=== PATIENT | female | born 1965 | race Caucasian/White ===

== ENCOUNTER 2016-05-26 08:18 | Observation (INO) | payer BC ==
[~2016-05-26] VITALS: Ht 157.5 cm; Wt 58.8 kg
[2016-05-26] MEDS ORDERED: NITROGLYCERIN 0.4 MG SL PER TAB CHARGE SL STA (08:59)
[2016-05-26] MEDS ORDERED: ASPIRIN 81 MG CHEW PO STA (09:05)
--- NOTE | 2016-05-26 09:06 | EMERGENCY ROOM VISIT NOTE ---
ED Visit Note First contact with patient: 08:36 Patient evaluated with resident. Atypical CP x 2 weeks, (?) exertional. (+) FH CAD in father. (-) prior cardiac evaluations nor stress test in last 2 years. EKG SR NSSTC w/ (-) troponin. Admit r/o ACS/CAD.
[2016-05-26 09:10] LABS: BASO % 0.6 %; BASO ABS # 0.02 K/uL (0-0.2); COMPLETE YES; HEMATOCRIT 41.9 % (37-47); LYMPH ABS # 1.35 K/uL (1.2-3.4); MEAN CELL VOLUME 89.7 fL (80-100); MEAN CORPUSCULAR HEMOGLOBIN 30.8 pg (25-34); MEAN CORPUSCULAR HGB CONC 34.4 g/dl (32-36); MEAN PLATELET VOLUME 10.4 fL (7.4-10.4); MONO % 6.5 %; NEUT % 52.9 %; PLATELET COUNT 175 K/uL (130-400); RED BLOOD COUNT 4.67 M/uL (4.2-5.4); WHITE BLOOD COUNT 3.55 K/uL (4.8-10.8)
[2016-05-26 09:17] LABS: ALT/SGPT 20 U/L (12-78); BLOOD UREA NITROGEN 12 mg/dl (7-18); CARBON DIOXIDE 27 mmol/L (21-32); CHLORIDE 106 mmol/L (98-107); CREATININE 0.83 mg/dl (0.60-1.20); GLUCOSE 64 mg/dl (70-99); POTASSIUM 3.4 mmol/L (3.5-5.1); SODIUM 144 mmol/L (136-145)
--- NOTE | 2016-05-26 09:17 | EMERGENCY ROOM VISIT NOTE ---
History First contact with patient: 08:36 Chief Complaint: CHEST PAIN Stated Complaint: CHEST PAIN Nursing Triage Summary: pt. states she has been experiencing mild chest pain and arm pain past week History of Present Illness The patient is a 50 year old female who presents to the Emergency Room with complaints of chest pain for 2 weeks. She has no history of HTN, DM, hypercholesterelemia. She is a non-smoker. She does have a pertinent family history of CAD (father had OH at 52) Patient notes a "squeezing pain" 6/10 substernally by favoring the left side. Pain also radiates to left scapula and she gets tingling in her left arm. She initially attributed pain gas or refluex. She prevacid and antacids but these did not help. She also notes some sweats with her symptoms. She denies nausea or epigastric pain. The pain is not pleuritic. She does note that she can palpate her left breast which makes the pain more noticeable. This morning, she tried walking in the treadmill and noted that it made her pain slightly worse. The pain improved slightly when she stopped walking. She denies coughing, SOB, wheezing, palpitations, orthopnea or edema. She denies being having stress testing done. She does not that in 2007, she had a similar episode when she was living in [place]. She was told she had inflammation around the lining of the heart. She cannot recall, if she was told whether she her pericarditis or pericardial effusion. Records of these are not available. Review of Systems A 10 point review of systems was negative unless stated above. Past Medical/Surgical History Medical ?Pericarditis/Pericardial effusion? 2007 in [place] Endometriosis Surgical - Breast implants 2004 - Hysterectomy for endometriosis Social History Smoking Status: Never Smoker Smokeless Tobacco Use: No Alcohol Use: none Drug Use: none Marital Status: Housing Status: lives with family ( and 3 kids) Occupation Status: employed (daycare) Current/Historical Medications No Active Prescriptions or Reported Meds Allergies Coded Allergies: No Known Allergies (Unverified , 05/26/16) Physical Exam Vital Signs Date Time Temp Pulse Resp B/P Pulse Ox O2 Delivery O2 Flow Rate FiO2 05/26/16 10:12 46 17 102/67 99 Room Air 05/26/16 09:26 57 20 107/70 96 Room Air 05/26/16 09:15 57 15 115/81 100 Room Air 05/26/16 08:35 100 Room Air 05/26/16 08:33 56 05/26/16 08:21 36.4 55 16 124/81 100 Room Air Pain Rating (0-10): 6 Physical Exam Constitutional: Vital signs as above were reviewed. Eyes: Pupils equal, round, and reactive to light. Extraocular muscles are intact. No proptosis. No photophobia. ENT: Mucous membranes are moist. Oropharynx is clear. No sinus tenderness. TMs are clear bilaterally. Cardiovascular: Bradycardia with regular rhythm. Pulses are palpable and symmetric in all 4 extremities. No pedal edema appreciated. No JVD Respiratory: Lungs clear to auscultation bilaterally. No wheezes, rales, or rhonchi appreciated. No accessory muscle use. No retractions. No increased work of breathing. GI: Abdomen soft, nontender, nondistended. Normal active bowel sounds. No abdominal hernias appreciated. No rebound. No guarding. : No CVA tenderness appreciated. Musculoskeletal: No midline cervical or vertebral tenderness. No gross deformities. No bony tenderness. No calf swelling or tenderness. Integumentary: Warm, dry, no rashes appreciated. Neurological: Patient awake, alert, and oriented x 3. Cranial nerves two through 12 grossly intact. Motor 5 out of 5 strength bilateral upper and lower extremities. Lymph: No cervical lymphadenopathy appreciated. Medical Decision & Procedures Laboratory Results 05/26/16 08:55 Red Blood Count 4.67, Mean Corpuscular Volume 89.7, Mean Corpuscular Hemoglobin 30.8, Mean Corpuscular Hemoglobin Concent 34.4, Mean Platelet Volume 10.4, Neutrophils (%) (Auto) 52.9, Lymphocytes (%) (Auto) 38.0, Monocytes (%) (Auto) 6.5, Eosinophils (%) (Auto) 2.0, Basophils (%) (Auto) 0.6, Neutrophils # (Auto) 1.88, Lymphocytes # (Auto) 1.35, Monocytes # (Auto) 0.23, Eosinophils # (Auto) 0.07, Basophils # (Auto) 0.02 05/26/16 08:55 Test 05/26/16 08:55 05/26/16 09:10 White Blood Count 3.55 K/uL (4.8-10.8) Red Blood Count 4.67 M/uL (4.2-5.4) Hemoglobin 14.4 g/dL (12.0-16.0) Hematocrit 41.9 % (37-47) Mean Corpuscular Volume 89.7 fL (80-100) Mean Corpuscular Hemoglobin 30.8 pg (25-34) Mean Corpuscular Hemoglobin Concent 34.4 g/dl (32-36) Platelet Count 175 K/uL (130-400) Mean Platelet Volume 10.4 fL (7.4-10.4) Neutrophils (%) (Auto) 52.9 % Lymphocytes (%) (Auto) 38.0 % Monocytes (%) (Auto) 6.5 % Eosinophils (%) (Auto) 2.0 % Basophils (%) (Auto) 0.6 % Neutrophils # (Auto) 1.88 K/uL (1.4-6.5) Lymphocytes # (Auto) 1.35 K/uL (1.2-3.4) Monocytes # (Auto) 0.23 K/uL (0.11-0.59) Eosinophils # (Auto) 0.07 K/uL (0-0.5) Basophils # (Auto) 0.02 K/uL (0-0.2) RDW Standard Deviation 42.4 fL (36.4-46.3) RDW Coefficient of Variation 13.0 % (11.5-14.5) Immature Granulocyte % (Auto) 0.0 % Immature Granulocyte # (Auto) 0.00 K/uL (0.00-0.02) Anion Gap 11.0 mmol/L (3-11) Est Creatinine Clear Calc Drug Dose 64.9 ml/min Estimated GFR () 96.0 Estimated GFR (Non- 82.8 BUN/Creatinine Ratio 14.0 (10-20) Calcium Level 9.0 mg/dl (8.5-10.1) Total Bilirubin 0.3 mg/dl (0.2-1) Aspartate Amino Transf (AST/SGOT) 28 U/L (15-37) Alanine Aminotransferase (ALT/SGPT) 20 U/L (12-78) Alkaline Phosphatase 79 U/L (45-117) Total Creatine Kinase 182 U/L (26-192) Creatine Kinase MB 4.0 ng/ml (0.5-3.6) Creatine Kinase MB Ratio 2.2 (0-3.0) Troponin I < 0.015 ng/ml (0-0.045) Total Protein 7.5 gm/dl (6.4-8.2) Albumin 4.2 gm/dl (3.4-5.0) Globulin 3.3 gm/dl (2.5-4.0) Albumin/Globulin Ratio 1.3 (0.9-2) Bedside Troponin I 0.000 ng/ml (0-0.045) Medications Administered Medications (Trade) Dose Ordered Sig/Brian Route Start Time Stop Time Status Last Admin Dose Admin Nitroglycerin (Nitrostat Tab) 0.4 mg NOW STAT SL 05/26/16 08:59 05/26/16 09:02 DC 05/26/16 09:13 0.4 MG Aspirin (Aspirin Chew) 324 mg NOW STAT PO 05/26/16 09:05 05/26/16 09:06 DC 05/26/16 09:13 324 MG ED Course 08:30 - Patient seen and assessed Initial orders placed: CBC, CMP, POC troponin, Troponin, CK, CKMB CXR, EKG 0.4 mg SL Nitro + 324 ASA chew 09:00 - Reviewed case with Dr. Arellano EKG review; No acute ST elevation; T wave inversion noted in AvL; otherwise normal EKG Agrees with plan; discuss need to admit for cardiac rule out. 09:30 - Reviewed Labs and CXR Cardiac enzymes normal x 1 Decision to admit 09:50 - Discussed case with Dr. Cyn Fitzpatrick of [facility] hospitalist service Hospitalist to admit patient for further evaluation Medical Decision Patient was interviewed, physical exam performed, and EMR reviewed. Patient presents with chest pain. Features are typical for angina 1) substernal pressure 2) worse with exertion 3) improves with rest. Patient is a 50-YO, with symptoms of typical angina, would categorize her in the intermediate probability for underlying CAD (10- 90%). Patient does note a history, likely of pericarditis or pericardial effusion, diagnosed in [place], also worth considering. Other differentials include: Angina, ACS, Pneumothorax, Pneumonia, Aortic Dissection, PE, esophageal spasm, esophagitis, PUD, gastritis, costochondritis. CXR was fortunately normal. No evidence of RV strain, no hypoxia or tacchycardia, or pyrexia to suggest infection or PE. Patient does need evaluation with stress testing due to intermediate ore-test probability. Case discussed with [facility] hospitalist service, who will admit patient for further evaluation. Patient departed from the ED in stable condition. Impression Primary Impression: Chest wall pain Departure Information Dispostion Being Evaluated By Hospitalist Condition GOOD Prescriptions No Active Prescriptions or Reported Meds Referrals Chaya Mcdaniels DO (PCP) Patient Instructions [facility]
[2016-05-26 09:21] LABS: ALB/GLOB RATIO 1.3 (0.9-2); ALKALINE PHOSPHATASE 79 U/L (45-117); AST/SGOT 28 U/L (15-37); CKMB/CK RATIO 2.2 (0-3.0)
--- NOTE | 2016-05-26 10:05 | DIAGNOSTIC IMAGING REPORT ---
CHEST 2 VIEWS ROUTINE CLINICAL HISTORY: Atypical chest pain, fatigue. COMPARISON STUDY: No previous studies for comparison. FINDINGS: The cardiac and mediastinal contours are normal. There is no evidence of focal pulmonary consolidation. There is no evidence of failure. No pleural effusions are visualized.[ IMPRESSION: No active disease in the chest. Electronically signed by: Andres Lepe M.D. 05/26/2016 10:03 AM Dictated Date/Time: 05/26/2016 10:02 AM
[2016-05-26] MEDS ORDERED: MAGNESIUM HYDROXIDE SUSP 30 ML UDC PO PRN (11:30)
[2016-05-26] MEDS ORDERED: NITROGLYCERIN 0.4 MG SL PER TAB CHARGE SL PRN (11:30)
[2016-05-26] MEDS ORDERED: ALUMINUM/MAGNESIUM/SIMETH (MAALOX MAX) 30 ML UDC PO PRN (11:30)
[2016-05-26] MEDS ORDERED: ACETAMINOPHEN 325 MG TAB PO PRN (11:30)
[2016-05-26] MEDS ORDERED: POLYETHYLENE (MIRALAX) 17 GM PACK PO PRN (11:30)
[2016-05-26] MEDS ORDERED: ONDANSETRON INJ 2 MG/ML 2 ML VIAL IV PRN (11:30)
[2016-05-26 11:51] VITALS: BP 123/75; PULSE 49; TEMP 36.4; O2SAT 98; Ht 157.5 cm; Wt 58.8 kg
[2016-05-26 12:13] LABS: PARTIAL THROMBOPLASTIN RATIO 1.1; PROTHROMBIN TIME (PATIENT) 10.3 SECONDS (9.0-12.0)
[2016-05-26 12:24] VITALS: O2SAT 98
--- NOTE | 2016-05-26 13:25 | History and Physical ---
History & Physical Date & Time of Service: May 26, 2016 at 12:57 Chief Complaint: Chest Pain Primary Care Physician: Chaya Mcdaniels DO History of Present Illness Source: patient, clinic records, hospital records This is a 50 y/o female with a history of presumably pericarditis around 2007 and no other significant past medical history who presented to the ED on with chest pain x 2 weeks. The patient describes the pain as a constant squeezing that is typically a 6/10 and is located on the left side of her chest substernally. The pain does radiate down to her left arm and she also complain of tingling down her left arm. Early this morning around 1:30 am prior to arrival the pain suddenly became more severe, waking the patient up. She also woke up with sweats, which is unusual for her. The pain at that time was a 7/ 10 and began to radiate through to her back and across to her right chest. The patient attempted to do her daily exercise on the treadmill, but this exacerbated the pain. The pain was alleviated with rest. The patient also notes that she has been more weak and fatigued in the last few weeks and has not been able to do her usual work out routine. The patient denies any previous cardiac events, although she does state that she experienced chest pain before around 2006 or 2007. These records are not on file, but based on the patient's description sounds like she was diagnosed with pericarditis and was treated with NSAIDs. The patient received ASA and nitro in the ED, which alleviated her pain from a 7/10 to a 3/10. The patient denies fevers, chills, palpitations, claudication, cough, wheezing, shortness of breath, nausea, vomiting, abdominal pain, dysuria, hematuria, urinary retention, and paralysis. Past Medical/Surgical History H/o pericarditis around 2007 Family History Alcohol abuse FATHER Anxiety disorder FATHER Drug abuse FATHER Hepatitis MOTHER Hypertension FATHER Hypothyroidism SISTER Myocardial infarction FATHER MOTHER Stroke FATHER MOTHER Social History Smoking Status: Never Smoker Smokeless Tobacco Use: No Alcohol Use: none Drug Use: none Marital Status: Housing status: lives with family Occupational Status: employed (daycare) Allergies Coded Allergies: No Known Allergies (Unverified , 05/26/16) Home Medications No Active Prescriptions or Reported Meds Review of Systems Constitutional: + fatigue, + sweats, + weakness, No chills, No fever Eyes: No diplopia, No eye pain, No worsening of vision ENT: No hearing loss, No sore throat, No tinnitus Respiratory: No cough, No shortness of breath, No wheezing Cardiovascular: + chest pain (squeezing, left side), No claudication, No palpitations Abdomen: No nausea, No pain, No vomiting Musculoskeletal: No calf pain, No joint pain, No muscle pain Genitourinary - Female: No dysuria, No hematuria, No urinary retention Neurologic: No numbness/tingling, No paralysis, No vertigo Integumentary: No color change, No itch, No rash Physical Exam Vital Signs Date Time Temp Pulse Resp B/P Pulse Ox O2 Delivery O2 Flow Rate FiO2 05/26/16 12:24 48 14 110/71 98 05/26/16 11:54 57 05/26/16 11:51 36.4 49 14 123/75 98 Room Air 05/26/16 11:17 49 13 111/75 100 Room Air 05/26/16 10:12 46 17 102/67 99 Room Air 05/26/16 09:26 57 20 107/70 96 Room Air 05/26/16 09:15 57 15 115/81 100 Room Air 05/26/16 08:35 100 Room Air 05/26/16 08:33 56 05/26/16 08:21 36.4 55 16 124/81 100 Room Air General Appearance: WD/WN, no apparent distress Head: normocephalic, atraumatic Eyes: normal inspection, PERRL, EOMI ENT: normal ENT inspection, hearing grossly normal, pharynx normal Neck: supple, no JVD, trachea midline Respiratory/Chest: lungs clear, normal breath sounds, no respiratory distress, + pertinent finding (left chest TTP anteriorly and laterally) Cardiovascular: regular rate, rhythm, no gallop, no murmur, + bradycardia Abdomen/GI: normal bowel sounds, non tender, soft Extremities/Musculoskelatal: normal inspection, no calf tenderness, no pedal edema Neurologic/Psych: alert, normal mood/affect, oriented x 3 Skin: normal color, warm/dry, no rash Diagnostics Laboratory Results Results Past 24 Hours Test 05/26/16 08:35 05/26/16 08:55 05/26/16 09:10 Range/Units Prothrombin Time 10.3 9.0-12.0 SECONDS Prothromb Time International Ratio 1.0 0.9-1.1 Activated Partial Thromboplast Time 27.5 21.0-31.0 SECONDS Partial Thromboplastin Ratio 1.1 White Blood Count 3.55 4.8-10.8 K/uL Red Blood Count 4.67 4.2-5.4 M/uL Hemoglobin 14.4 12.0-16.0 g/dL Hematocrit 41.9 37-47 % Mean Corpuscular Volume 89.7 80-100 fL Mean Corpuscular Hemoglobin 30.8 25-34 pg Mean Corpuscular Hemoglobin Concent 34.4 32-36 g/dl Platelet Count 175 130-400 K/uL Mean Platelet Volume 10.4 7.4-10.4 fL Neutrophils (%) (Auto) 52.9 % Lymphocytes (%) (Auto) 38.0 % Monocytes (%) (Auto) 6.5 % Eosinophils (%) (Auto) 2.0 % Basophils (%) (Auto) 0.6 % Neutrophils # (Auto) 1.88 1.4-6.5 K/uL Lymphocytes # (Auto) 1.35 1.2-3.4 K/uL Monocytes # (Auto) 0.23 0.11-0.59 K/uL Eosinophils # (Auto) 0.07 0-0.5 K/uL Basophils # (Auto) 0.02 0-0.2 K/uL RDW Standard Deviation 42.4 36.4-46.3 fL RDW Coefficient of Variation 13.0 11.5-14.5 % Immature Granulocyte % (Auto) 0.0 % Immature Granulocyte # (Auto) 0.00 0.00-0.02 K/uL Sodium Level 144 136-145 mmol/L Potassium Level 3.4 3.5-5.1 mmol/L Chloride Level 106 98-107 mmol/L Carbon Dioxide Level 27 21-32 mmol/L Anion Gap 11.0 3-11 mmol/L Blood Urea Nitrogen 12 7-18 mg/dl Creatinine 0.83 0.60-1.20 mg/dl Est Creatinine Clear Calc Drug Dose 64.9 ml/min Estimated GFR () 96.0 Estimated GFR (Non- 82.8 BUN/Creatinine Ratio 14.0 10-20 Random Glucose 64 70-99 mg/dl Calcium Level 9.0 8.5-10.1 mg/dl Total Bilirubin 0.3 0.2-1 mg/dl Aspartate Amino Transf (AST/SGOT) 28 15-37 U/L Alanine Aminotransferase (ALT/SGPT) 20 12-78 U/L Alkaline Phosphatase 79 45-117 U/L Total Creatine Kinase 182 26-192 U/L Creatine Kinase MB 4.0 0.5-3.6 ng/ml Creatine Kinase MB Ratio 2.2 0-3.0 Troponin I < 0.015 0-0.045 ng/ml Total Protein 7.5 6.4-8.2 gm/dl Albumin 4.2 3.4-5.0 gm/dl Globulin 3.3 2.5-4.0 gm/dl Albumin/Globulin Ratio 1.3 0.9-2 Bedside Troponin I 0.000 0-0.045 ng/ml Diagnostic Radiology Reviewed the following studies and agree with interpretation as follows: Patient Name: PRINCESS MURPHY Unit Number: [id number] Dictated: 05/26/161001 Transcribed: 05/26/161001 ARG Printed Date/Time: [~ rep prt dt]/[~ rep prt tm] [~ rep ct labl] - [~ rep ct ivnm] [facility] [place] [place] [address] Dictated: 05/26/16 1002 Transcribed: 05/26/16 1002 ARG Printed Date/Time: [~ rep prt dt]/[~ rep prt tm] [~ rep ct labl] - [~ rep ct ivnm] Patient: PRINCESS MURPHY Lavinia Address1: [address] [facility] Rec: [id number] Address2: Acct ID: [id number] [facility] Zip: [place] [address] Date: 1965 Sex: F Room/Bed: Ref Phy: Chaya Mcdaniels DO SC: ZAN Att Phy: Report #: [id number] Edyta Phy: Chaya Mcdaniels DO Test: CXR Admit Phy: Supervisor [employer] Handling: PATEGR Interpreting Phy: Andres Lepe M.D. Diagnosis: CHEST PAIN Ordering Phy: Kel Woodruff MD Service Date: 05/26/16 Admit Date: 05/26/16 MNE: [id number] CONF: DICTATED BY: Andres Lepe M.D.]] CC: Chaya Mcdaniels, Deanne Bocanegra, Kel Fenton MD Endcc: [~ rep ct add3]] CHEST 2 VIEWS ROUTINE CLINICAL HISTORY: Atypical chest pain, fatigue. COMPARISON STUDY: No previous studies for comparison. FINDINGS: The cardiac and mediastinal contours are normal. There is no evidence of focal pulmonary consolidation. There is no evidence of failure. No pleural effusions are visualized.[ IMPRESSION: No active disease in the chest. Electronically signed by: Andres Lepe M.D. 05/26/2016 10:03 AM Dictated Date/Time: 05/26/2016 10:02 AM The status of this report is Signed. Draft = Not yet reviewed or approved by Radiologist. Signed = Reviewed and approved by Radiologist. <AttendingPhy></AttendingPhy> <FamilyPhy>Chaya Mcdaniels DO</FamilyPhy> < PrimaryPhy>Chaya Mcdaniels, </PrimaryPhy> <UnitNumber>[id number]</UnitNumber > <VisitNumber>[id number]</VisitNumber> <PatientName>PRINCESS MURPHY Lavinia</ PatientName> <DateOfBirth>1965</DateOfBirth> <Location>C.EDB</Location> < ServiceDate>05/26/16</ServiceDate> <MNE>ESINDI</MNE> <OrderingPhy>Kel Woodruff MD</OrderingPhy> <OrderingPhyMNE>f rep ord dr coleman</OrderingPhyMNE> < DictatingPhyMNE>f rep dict dr coleman</DictatingPhyMNE> <CCListMNE>f rep ct mne</ CCListMNE> <AdmittingPhyMNE>f pt admit dr coleman</AdmittingPhyMNE> <AttendingPhyMNE >f pt attend dr coleman</AttendingPhyMNE> <ConsultingPhyMNE>f pt consult dr coleman</ConsultingPhyMNE> <FamilyPhyMNE>f pt fam dr coleman</FamilyPhyMNE> <OtherPhyMNE>f pt other dr coleman</OtherPhyMNE> < PrimaryPhyMNE>f pt prim care dr coleman</PrimaryPhyMNE> <ReferringPhyMNE>f pt referring dr coleman</ReferringPhyMNE> EKG Reviewed EKG and agree with interpretation as follows: 52 bpm, sinus bradycardia, mild T wave inversions in aVL, V1 and V3 Impression Assessment and Plan 50 y/o female with a history of presumably pericarditis around and no other significant past medical history who presented to the ED on 05/26 with chest pain x 2 weeks. Pain is constant and squeezing in character, located substernal left chest with radiation down left arm as well as tingling. This morning the pain became more severe and radiated to back and right chest, this was accompanied by sweats. Pain exacerbated by exercise and alleviated by rest. Pain alleviated by nitro and ASA received in ED. Pt. afebrile, VSS. CXR no acute disease. EKG sinus bradycardia with mild anterolateral T wave inversions, no ST changes. First set cardiac enzymes negative. Chest pain -Admit to telemetry for observation and cardiac monitoring -Trend cardiac enzymes q8h x 3 -Echocardiogram ordered -Start ASA 81 mg PO qd -NPO after midnight -Exercise stress test tomorrow am -Fasting lipid panel tomorrow am -Repeat EKG in the am, and prn with recurrence of chest pain GI prophylaxis -Maalox Max 15 mL PO q4h prn dyspepsia -Milk of magnesia 30 mL PO q6h prn constipation -Miralax 17 gm PO qd prn constipation -Zofran 4 mg IV q6h prn nausea DVT prophylaxis -ABBE reid and SCDs Code Status -Level I, FULL RESUSCITATION STATUS Level of Care Telemetry (observation) Advanced Directives Existing Advance Directive: No Existing Living Will: No Existing Power of Supervisor Powdered Sugar: No Resuscitation Status FULL RESUSCITATION VTE Prophylaxis VTE Risk Assessment Done? Y/N: Yes Risk Level: Low Given or contraindicated: T.E.D. Stockings, SCD's Reviewed: Pt Seen/Exam by Me History Pt has more of a soreness along her L chest that is along the outline of her breast/under her breast. There has not been return of the intense pain like this AM, but she was walking on a treadmill when this happened. Tianna GONZALEZ feels "off " but not the more billy n/t that she had this AM. This is not really similar to the chest pain episode she had several years ago. She has been NPO since arrival. There has been no SOB. Agree with HPI/ROS as noted. General Appearance: WD/WN, no apparent distress Respiratory: normal breath sounds, no respiratory distress Cardiovascular: normal peripheral pulses, regular rate, rhythm Gastrointestinal: non tender, soft Extremities: non-tender, no pedal edema Neurologic/Psychiatric: alert, normal mood/affect Skin Characteristics: normal color, warm/dry Comments CP is reproducible along outline of L breast, worst along inferior and medial border Assessment/Plan Agree with plan as outlined above Trop neg in ED, serial pending ECHO and likely stress pending Concerning for ACS given LUE n/t and FH of same
[2016-05-26] MEDS ORDERED: IV FLUIDS COMPLETED PRN (13:45)
[2016-05-26] MEDS ORDERED: POTASSIUM CHLORIDE 20 MEQ TABCR PO ONE (15:00)
[2016-05-26 16:00] VITALS: BP 130/47; PULSE 52; TEMP 36.9; O2SAT 100
--- NOTE | 2016-05-26 16:45 | ECHOCARDIOGRAM REPORT ---
*NOTICE TO RECEIVING [employer]ENCY This information is strictly Confidential and protected under [place] law. [place] law prohibits you from making any further disclosure of this information unless further disclosure is expressly permitted by the written consent of the person to whom it pertains or is authorized by law. A general authorization for the release of medical or other information is not sufficient for this purpose. Hospital accepts no responsibility if the information is made available to any other person, INCLUDING THE PATIENT. Interpretation Summary * Name: PRINCESS MURPHY Study Date: 05/26/2016 04:21 PM BP: 110/71 mmHg * Patient Location: C.2E\S\E210\S\1 HR: 46 * : 1965 (M/d/yyyy) Gender: Female Height: 62 in * Age: 50 yrs Ethnicity: CA Weight: 132 lb * Ordering Physician: Melinda Bobo * Referring Physician: Self, Referred * Performed By: Agnes Caballero [facility] * * Reason For Study: CHEST PAIN * BSA: 1.6 m2 * -- Conclusions -- * 1. Normal left ventricular size and systolic function. EF 55-60%. No regional wall motion abnormalities. No left ventricular hypertrophy. * 2. No significant valvular abnormalities visualized. * 3. No prior study available for comparison. Procedure Details * A complete two-dimensional transthoracic echocardiogram was performed (2D, M-mode, Doppler and color flow Doppler). Left Ventricle * Normal left ventricular size and systolic function. EF 55-60%. No regional wall motion abnormalities. No left ventricular hypertrophy. Right Ventricle * The right ventricle is normal in size and function. * The right ventricular systolic function is normal as assessed by tricuspid annular plane systolic excursion (TAPSE) (normal >1.5 cm). Atria * The left atrial size is normal. * Right atrial size is normal. * There is no evidence of atrial septal defect, but resolution does not allow assessment for a patent foramen ovale. Mitral Valve * The mitral valve is normal in structure and function. * There is no mitral valve stenosis. * There is no mitral regurgitation noted. Tricuspid Valve * The tricuspid valve is not well visualized, but is grossly normal. * There is no tricuspid stenosis. * There is trace tricuspid regurgitation. Aortic Valve * The aortic valve is trileaflet. * The aortic valve is normal in structure and function. * No hemodynamically significant valvular aortic stenosis. * No aortic regurgitation is present. Pulmonic Valve * The pulmonary valve is inadequately visualized, but the Doppler data is adequate for interpretation. * There is no pulmonic valvular stenosis. * There is no significant pulmonary regurgitation. Great Vessels * The aortic root is normal size. * Aortic arch of normal dimension. Pericardium/Pleural * There is no pericardial effusion. Great Vessels * Normal inferior vena cava size and collapsability with sniff indicates a normal right atrial pressure of 3 mmHg MMode 2D Measurements and Calculations IVSd 0.87 cm IVSs 1.0 cm LVIDd 4.3 cm LVIDs 2.8 cm LVPWd 0.85 cm LVPWs 1.2 cm IVS/LVPW 1.0 FS 35.3 % EDV(Teich) 81.7 ml ESV(Teich) 28.6 ml EF(Teich) 65.0 % EDV(cubed) 77.9 ml ESV(cubed) 21.1 ml EF(cubed) 72.9 % % IVS thick 20.9 % % LVPW thick 39.4 % LV mass(C)d 114.4 grams LV mass(C)dI 71.4 grams/m\S\2 LV mass(C)s 86.9 grams LV mass(C)sI 54.2 grams/m\S\2 SV(Teich) 53.1 ml SI(Teich) 33.1 ml/m\S\2 SV(cubed) 56.7 ml SI(cubed) 35.4 ml/m\S\2 Ao root diam 3.1 cm Ao root area 7.4 cm\S\2 ACS 1.8 cm LA dimension 2.9 cm LA/Ao 0.96 LVOT diam 2.0 cm LVOT area 3.0 cm\S\2 LVAd ap4 20.7 cm\S\2 LVLd ap4 6.5 cm EDV(MOD-sp4) 55.4 ml EDV(sp4-el) 55.9 ml LVAs ap4 12.2 cm\S\2 LVLs ap4 5.6 cm ESV(MOD-sp4) 22.9 ml ESV(sp4-el) 22.7 ml EF(MOD-sp4) 58.8 % EF(sp4-el) 59.4 % LVAd ap2 24.0 cm\S\2 LVLd ap2 6.6 cm EDV(MOD-sp2) 71.6 ml EDV(sp2-el) 74.3 ml LVAs ap2 13.8 cm\S\2 LVLs ap2 5.6 cm ESV(MOD-sp2) 29.6 ml ESV(sp2-el) 29.1 ml EF(MOD-sp2) 58.6 % EF(sp2-el) 60.8 % LVLd %diff 0.62 % EDV(MOD-bp) 64.8 ml LVLs %diff -0.15 % ESV(MOD-bp) 25.9 ml EF(MOD-bp) 59.9 % SV(MOD-sp4) 32.6 ml SI(MOD-sp4) 20.3 ml/m\S\2 SV(MOD-sp2) 42.0 ml SI(MOD-sp2) 26.2 ml/m\S\2 SV(MOD-bp) 38.8 ml SI(MOD-bp) 24.2 ml/m\S\2 SV(sp4-el) 33.2 ml SI(sp4-el) 20.7 ml/m\S\2 SV(sp2-el) 45.2 ml SI(sp2-el) 28.2 ml/m\S\2 Doppler Measurements and Calculations MV E max margarette 62.6 cm/sec MV A max margarette 37.7 cm/sec MV E/A 1.7 MV P1/2t max margarette 71.8 cm/sec MV P1/2t 114.1 msec MVA(P1/2t) 1.9 cm\S\2 MV dec slope 184.4 cm/sec\S\2 MV dec time 0.19 sec TV E max margarette 44.2 cm/sec
[2016-05-26 18:11] LABS: CKMB/CK RATIO 1.8 (0-3.0)
[2016-05-26 20:11] VITALS: BP 99/54; PULSE 51; TEMP 36.7; O2SAT 97
[2016-05-27 00:12] VITALS: BP 102/68; PULSE 55; TEMP 36.5; O2SAT 96
[2016-05-27 01:54] LABS: CKMB/CK RATIO 1.7 (0-3.0)
[2016-05-27 04:04] VITALS: BP 94/55; PULSE 52; TEMP 36.4; O2SAT 96
[2016-05-27 06:45] LABS: HEMATOCRIT 37.9 % (37-47); MEAN CELL VOLUME 88.8 fL (80-100); MEAN CORPUSCULAR HEMOGLOBIN 30.2 pg (25-34); MEAN PLATELET VOLUME 10.3 fL (7.4-10.4); PLATELET COUNT 158 K/uL (130-400); RED BLOOD COUNT 4.27 M/uL (4.2-5.4); WHITE BLOOD COUNT 3.45 K/uL (4.8-10.8)
[2016-05-27 07:20] LABS: BUN/CREATININE RATIO 13.2 (10-20); CALCIUM 8.5 mg/dl (8.5-10.1); CREATININE 0.85 mg/dl (0.60-1.20)
[2016-05-27 07:34] LABS: CHOLESTEROL/HDL RATIO 2.3
--- NOTE | 2016-05-27 08:17 | Hospitalist Progress Note ---
Hospitalist Progress Note Date of Service May 27, 2016. Subjective Pt evaluation today including: conversation w/ patient Objective Vital Signs Date Time Temp Pulse Resp B/P Pulse Ox O2 Delivery O2 Flow Rate FiO2 05/27/16 04:18 Room Air 05/27/16 04:04 36.4 52 16 94/55 96 Room Air 05/27/16 00:34 Room Air 05/27/16 00:12 36.5 55 16 102/68 96 Room Air 05/26/16 20:31 Room Air 05/26/16 20:11 36.7 51 16 99/54 97 Room Air 05/26/16 16:00 36.9 52 18 130/47 100 Room Air 05/26/16 15:48 Room Air 05/26/16 12:24 48 14 110/71 98 05/26/16 11:54 57 05/26/16 11:51 36.4 49 14 123/75 98 Room Air 05/26/16 11:17 49 13 111/75 100 Room Air 05/26/16 10:12 46 17 102/67 99 Room Air 05/26/16 09:26 57 20 107/70 96 Room Air 05/26/16 09:15 57 15 115/81 100 Room Air 05/26/16 08:35 100 Room Air 05/26/16 08:33 56 05/26/16 08:21 36.4 55 16 124/81 100 Room Air Laboratory Results Last 24 Hours Test 05/26/16 08:35 05/26/16 08:55 05/26/16 09:10 05/26/16 17:10 Prothrombin Time 10.3 SECONDS Prothromb Time International Ratio 1.0 Activated Partial Thromboplast Time 27.5 SECONDS Partial Thromboplastin Ratio 1.1 White Blood Count 3.55 K/uL Red Blood Count 4.67 M/uL Hemoglobin 14.4 g/dL Hematocrit 41.9 % Mean Corpuscular Volume 89.7 fL Mean Corpuscular Hemoglobin 30.8 pg Mean Corpuscular Hemoglobin Concent 34.4 g/dl Platelet Count 175 K/uL Mean Platelet Volume 10.4 fL Neutrophils (%) (Auto) 52.9 % Lymphocytes (%) (Auto) 38.0 % Monocytes (%) (Auto) 6.5 % Eosinophils (%) (Auto) 2.0 % Basophils (%) (Auto) 0.6 % Neutrophils # (Auto) 1.88 K/uL Lymphocytes # (Auto) 1.35 K/uL Monocytes # (Auto) 0.23 K/uL Eosinophils # (Auto) 0.07 K/uL Basophils # (Auto) 0.02 K/uL RDW Standard Deviation 42.4 fL RDW Coefficient of Variation 13.0 % Immature Granulocyte % (Auto) 0.0 % Immature Granulocyte # (Auto) 0.00 K/uL Sodium Level 144 mmol/L Potassium Level 3.4 mmol/L Chloride Level 106 mmol/L Carbon Dioxide Level 27 mmol/L Anion Gap 11.0 mmol/L Blood Urea Nitrogen 12 mg/dl Creatinine 0.83 mg/dl Est Creatinine Clear Calc Drug Dose 64.9 ml/min Estimated GFR () 96.0 Estimated GFR (Non- 82.8 BUN/Creatinine Ratio 14.0 Random Glucose 64 mg/dl Calcium Level 9.0 mg/dl Total Bilirubin 0.3 mg/dl Aspartate Amino Transf (AST/SGOT) 28 U/L Alanine Aminotransferase (ALT/SGPT) 20 U/L Alkaline Phosphatase 79 U/L Total Creatine Kinase 182 U/L 136 U/L Creatine Kinase MB 4.0 ng/ml 2.5 ng/ml Creatine Kinase MB Ratio 2.2 1.8 Troponin I < 0.015 ng/ml < 0.015 ng/ml Total Protein 7.5 gm/dl Albumin 4.2 gm/dl Globulin 3.3 gm/dl Albumin/Globulin Ratio 1.3 Bedside Troponin I 0.000 ng/ml Test 05/27/16 01:02 05/27/16 06:12 Total Creatine Kinase 116 U/L Creatine Kinase MB 2.0 ng/ml Creatine Kinase MB Ratio 1.7 Troponin I < 0.015 ng/ml White Blood Count 3.45 K/uL Red Blood Count 4.27 M/uL Hemoglobin 12.9 g/dL Hematocrit 37.9 % Mean Corpuscular Volume 88.8 fL Mean Corpuscular Hemoglobin 30.2 pg Mean Corpuscular Hemoglobin Concent 34.0 g/dl RDW Standard Deviation 41.1 fL RDW Coefficient of Variation 12.8 % Platelet Count 158 K/uL Mean Platelet Volume 10.3 fL Sodium Level 144 mmol/L Potassium Level 4.0 mmol/L Chloride Level 107 mmol/L Carbon Dioxide Level 30 mmol/L Anion Gap 7.0 mmol/L Blood Urea Nitrogen 11 mg/dl Creatinine 0.85 mg/dl Est Creatinine Clear Calc Drug Dose 63.3 ml/min Estimated GFR () 93.3 Estimated GFR (Non- 80.5 BUN/Creatinine Ratio 13.2 Random Glucose 78 mg/dl Calcium Level 8.5 mg/dl Triglycerides Level 105 mg/dl Cholesterol Level 166 mg/dl HDL Cholesterol 73 mg/dl LDL Cholesterol, Calculated 72 mg/dl VLDL Cholesterol, Calculated 21 mg/dl Cholesterol/HDL Ratio 2.3 Assessment and Plan Chest pain -Cardiac enzymes x 3 all negative -Echo: * 1. Normal left ventricular size and systolic function. EF 55-60%. No regional wall motion abnormalities. No left ventricular hypertrophy. * 2. No significant valvular abnormalities visualized. * 3. No prior study available for comparison. - Cont ASA 81 mg PO qd - NPO for now until after stress in case of procedure - Exercise stress test today - Lipid panel is great- total cholesterol =166, HDL is 73 and LDL is 72. - Repeat EKG in the am, and prn with recurrence of chest pain GI prophylaxis -Maalox Max 15 mL PO q4h prn dyspepsia -Milk of magnesia 30 mL PO q6h prn constipation -Miralax 17 gm PO qd prn constipation -Zofran 4 mg IV q6h prn nausea DVT ppx: -ABBE reid and Arjun Code Status: Full Code Disposition: From home, d/c when medically stable
[2016-05-27] MEDS ORDERED: ASPIRIN 81 MG ECTAB PO SCH (09:00)
[2016-05-27 10:07] VITALS: BP 94/55; PULSE 52; TEMP 36.4; O2SAT 96
--- NOTE | 2016-05-27 10:07 | Discharge Instructions ---
Discharge Instructions Admission Reason for Admission: Chest Pain Discharge Discharge Diagnosis / Problem: Musculoskeletal chest pain Discharge Goals Goal(s): Decrease discomfort, Improve function Activity Recommendations Activity Limitations: resume your previous activity . Instructions / Follow-Up Instructions / Follow-Up You were admitted to [facility] with chest pain and diagnosed with musculoskeletal strain causing chest pain. Cardiac enzymes were trended during your stay and were negative. You also completed an exercise stress test which was negative. Your EKG was normal. You should follow up with your plastic surgeon within the next 2-4 weeks to have an evaluation of breast implants done as this may possibly be causing some of your symptoms. Current Hospital Diet Patient's current hospital diet: AHA Diet (Heart Healthy) Discharge Diet Recommended Diet: Regular Diet Procedures Procedures Performed: Chest Xray- no acute process active in the chest Exercise stress test- negative for acute findings Pending Studies Studies pending at discharge: no Laboratory Results Last 24 Hours Test 05/26/16 17:10 05/27/16 01:02 05/27/16 06:12 Total Creatine Kinase 136 U/L 116 U/L Creatine Kinase MB 2.5 ng/ml 2.0 ng/ml Creatine Kinase MB Ratio 1.8 1.7 Troponin I < 0.015 ng/ml < 0.015 ng/ml White Blood Count 3.45 K/uL Red Blood Count 4.27 M/uL Hemoglobin 12.9 g/dL Hematocrit 37.9 % Mean Corpuscular Volume 88.8 fL Mean Corpuscular Hemoglobin 30.2 pg Mean Corpuscular Hemoglobin Concent 34.0 g/dl RDW Standard Deviation 41.1 fL RDW Coefficient of Variation 12.8 % Platelet Count 158 K/uL Mean Platelet Volume 10.3 fL Sodium Level 144 mmol/L Potassium Level 4.0 mmol/L Chloride Level 107 mmol/L Carbon Dioxide Level 30 mmol/L Anion Gap 7.0 mmol/L Blood Urea Nitrogen 11 mg/dl Creatinine 0.85 mg/dl Est Creatinine Clear Calc Drug Dose 63.3 ml/min Estimated GFR () 93.3 Estimated GFR (Non- 80.5 BUN/Creatinine Ratio 13.2 Random Glucose 78 mg/dl Calcium Level 8.5 mg/dl Triglycerides Level 105 mg/dl Cholesterol Level 166 mg/dl HDL Cholesterol 73 mg/dl LDL Cholesterol, Calculated 72 mg/dl VLDL Cholesterol, Calculated 21 mg/dl Cholesterol/HDL Ratio 2.3 Lipid Panel Test 1/24/17 06:12 Range/Units Triglycerides Level 105 0-150 mg/dl Cholesterol Level 166 0-200 mg/dl HDL Cholesterol 73 mg/dl Cholesterol/HDL Ratio 2.3 LDL Cholesterol, Calculated 72 mg/dl Medical Emergencies . Who to Call and When: Medical Emergencies: If at any time you feel your situation is an emergency, please call 911 immediately. . Non-Emergent Contact Non-Emergency issues call your: Primary Care Provider Call Non-Emergent contact if: your pain is not controlled, your pain is worsening, your pain is unusual for you . Past History Medical & Surgical History: (1) Chest wall pain . "Provider Documentation" section prepared by Carol Henry. VTE Core Measure Inpt VTE Proph given/why not?: Vale Hernandez, SCD's
--- NOTE | 2016-05-27 10:17 | Discharge Summary ---
Discharge Summary Admission Date: May 26, 2016 at 11:41 Discharge Date: May 27, 2016 Discharge Disposition: Home Principal Diagnosis: Musculoskeletal strain of the chest wall Procedures: Exercise Stress Test: 05/27/16 CXR: 05/26/16 - Impression: No active disease in the chest (Alia Henry PA-C) Medication Reconciliation Medication Profile: No Active Prescriptions or Reported Meds Referrals At Discharge Follow up Referrals: Family Practice Referral - Within 1-2 Weeks with Chaya Mcdaniels, DO Discharge Exam The patient was seen and examined this morning. Pt reports she has minimal chest wall pain this morning in her left side of the rib cage and that this pain goes through to her back. She denies having worsening pain, shortness of breath, headache, lightheadedness or dizziness. She had an exercise stress test this morning and reports no problems and passed per cardiology. I spoke with Sunil Diaz PA-C who performed the pts stress test and he states she passed without any difficulty. Walked on the treadmill for 12 minutes and had her HR return to 70 bpm within 1 minutes of rest after the test. Review of Systems: Constitutional: No chills, No fever, No sweats Eyes: No diplopia ENT: No sore throat, No tinnitus Respiratory: No cough, No dyspnea at rest, No dyspnea on exertion, No shortness of breath Cardiovascular: No chest pain, No palpitations Abdomen: No constipation, No diarrhea, No nausea, No pain, No vomiting Musculoskeletal: No joint pain Genitourinary - Female: No dysuria Neurologic: No balance problems, No numbness/tingling Integumentary: No itch, No rash Physical Exam: General Appearance: WD/WN, no apparent distress Eyes: PERRL, EOMI ENT: hearing grossly normal, pharynx normal Neck: supple, no JVD Respiratory/Chest: normal breath sounds, no respiratory distress, no accessory muscle use Cardiovascular: regular rate, rhythm, normal peripheral pulses Abdomen / GI: normal bowel sounds, non tender, soft Extremities: no calf tenderness, no pedal edema Neurologic/Psychiatric: alert, normal mood/affect, oriented x 3 Skin: normal color, warm/dry (Alia Henry PA-C) Hospital Course Chest pain -Cardiac enzymes x 3 all negative -Echo: * 1. Normal left ventricular size and systolic function. EF 55-60%. No regional wall motion abnormalities. No left ventricular hypertrophy. * 2. No significant valvular abnormalities visualized. * 3. No prior study available for comparison. - Cont ASA 81 mg PO qd - NPO for now until after stress in case of procedure - Exercise stress test today - Lipid panel is great- total cholesterol =166, HDL is 73 and LDL is 72. - Repeat EKG in the am, and prn with recurrence of chest pain - Have asked that the pt follow up with her plastic surgeon to have breast implants evaluated as she has had pain like this in the past and always happens in the same spot. Would like her to see this provider within the next 2-4 weeks. - Follow up with PCP within 1 week. GI prophylaxis -Maalox Max 15 mL PO q4h prn dyspepsia -Milk of magnesia 30 mL PO q6h prn constipation -Miralax 17 gm PO qd prn constipation -Zofran 4 mg IV q6h prn nausea DVT ppx: -ABBE reid and SCDs Code Status: Full Code Disposition: From home, d/c today Total Time Spent: Greater than 30 minutes This includes examination of the patient, discharge planning, medication reconciliation, and communication with other providers. (Alia Henry PA-C) Discharge Instructions Please refer to the electronic Patient Visit Report (Discharge Instructions) for additional information. (Alia Henry PA-C) Follow-Up Follow up with your Primary Care Provider within 1 week. Follow up with plastic surgeon within 2-4 weeks. (Alia Henry PA-C) Additional Copies To Chaya Mcdaniels DO Reviewed: Pt Seen/Exam by Me (Cyn Fitzpatrick DO) History Pt still with a bit of L chest soreness, but no further n/t into her L UE. She tolerated her stress test today without recurrence of L chest pain that she had on the treadmill yesterday. No SOB. Tolerating PO. Agree with HPI/ROS as noted. (Cyn Fitzpatrick DO) General Appearance: WD/WN, no apparent distress Respiratory: normal breath sounds, no respiratory distress Cardiovascular: normal peripheral pulses, regular rate, rhythm, other (diffuse but improved L sided chest pain around entire L breast) Gastrointestinal: non tender, soft Extremities: non-tender, no pedal edema Neurologic/Psychiatric: alert, oriented x 3 Skin Characteristics: normal color, warm/dry (Cyn Fitzpatrick, DO) Assessment/Plan Agree with plan as outlined above Trop neg x3 ECHO and stress WNL and no recurrence of chest pain/UE n/t Lipid profile is excellent Discussed with pt at length. Likely MSK related pain, possibly pleural pain Informed by PA later that pt has hx of breast implants and this could be related to scar tissue or implant Lyme possibly as well although pt declines any possible exposures, advised she can f/u with this as outpt with PCP if there is return of pain (Cyn Fitzpatrick, DO)
--- NOTE | 2016-05-27 10:27 | EXERCISE STRESS ECHO ---
*NOTICE TO RECEIVING [employer]ENCY This information is strictly Confidential and protected under [place] law. [place] law prohibits you from making any further disclosure of this information unless further disclosure is expressly permitted by the written consent of the person to whom it pertains or is authorized by law. A general authorization for the release of medical or other information is not sufficient for this purpose. Hospital accepts no responsibility if the information is made available to any other person, INCLUDING THE PATIENT. Interpretation Summary * Name: PRINCESS MURPHY Study Date: 05/27/2016 07:52 AM BP: 101/69 mmHg * Patient Location: .2E\S\E210\S\1 HR: 58 * : 1965 (M/d/yyyy) Gender: Female Height: 62 in * Age: 50 yrs Ethnicity: [place] Weight: 129 lb * Ordering Physician: Melinda Bobo * Referring Physician: Self, Referred * Performed By: Agnes Caballero [facility] * * Reason For Study: CHEST PAIN * BSA: 1.6 m2 * -- Conclusions -- * Stress Echo: * 1. Negative stress echo for ischemia at 93% MPHR. * 2. Negative exercise ECG for ischemia at 93% MPHR. * 3. No arrhythmia. * 4. Appropriate blood pressure response to exercise. * 5. Chest pain reported during exercise. * 6. Excellent exercise tolerance. Procedure Details * ECHOEX, CPT #63851 Left Ventricle * The left ventricle is normal in size. * There is normal left ventricular wall thickness. * Left ventricular systolic function is normal. * The left ventricular ejection fraction increases normally with stress. The left ventricular end-systolic cavity size reduces post-stress (normal response). The left ventricular wall motion with stress is normal. * Resting wall motion: Normal. Stress wall motion: Appropriate increase in Left ventricular systolic function and decrease in cavity size. No stress induced segmental wall motion abnormalities. Stress Parameters * Sinus bradycardia at 53 bpm. Nonspecific T wave abnormality. * Stress ECG: No ST changes. No arrhythmias. * No arrhythmia were noted with stress. * The stress portion of this study was personally supervised by the undersigned interpreting physician. * Rest heart rate was '58' BPM. * Rest blood pressure was '101/69' * Maximum heart rate achieved was 160 bpm. * Maximum heart rate was 93 % of maximum age-predicted heart rate. * Maximum blood pressure was '147/78' * Total exercise time was '12:56' * Maximum exercise MET level achieved was '15.10' METS * Maximum treadmill speed was '5.00' miles per hour. * Maximum treadmill elevation was '18.00'% grade. * Normal blood pressure response to exercise. * Chest pain reported during exercise.
== END 2016-05-27 12:32 | disposition home or self-care (01) ==
LOC: ENRESERVDT → ENRESERVTM → C.EDB 08:19 → C.2E 11:41
PROVIDERS: ADMIT Family Medicine; ATTEND Family Medicine
DX: S29.019A Strain of muscle and tendon of unspecified wall of thorax, initial encounter (principal); X58.XXXA Exposure to other specified factors, initial encounter